=== PATIENT | female | born 1940 | race Caucasian/White ===

== ENCOUNTER 2017-10-30 23:24 | Inpatient (IN) | payer OTHER ==
[~2017-10-30] VITALS: Ht 165.1 cm; Wt 71.7 kg
[~2017-10-30 23:24] MED LIST: ALBU90AE IH; AMLO2.5T45 PO; CLOP75TA16 PO; FAMO20TA8 PO; METO25TA6 PO; NITR0.4T49 *; NITR0.4T49 SL; PANT40TA4 PO; PREG75CA PO
[2017-10-31] MEDS ORDERED: SODIUM CHLORIDE 0.9% 1,000 ML IV ONE (00:15)
[2017-10-31 00:45] LABS: HEMATOCRIT. 36.5 % (36.0-48.0); MEAN CORPUSCULAR HEMOGLOBIN 29.6 pg (28.0-32.0); MEAN CORPUSCULAR VOLUME 90.1 fL (81.0-99.0); MEAN PLATELET VOLUME 8.6 fl (7.4-10.4); PLATELET 296 x1000/uL (130-400); RED BLOOD CELL COUNT 4.05 mill/uL (4.2-5.4); RED CELL DISTRIBUTION WIDTH 15.9 % (11.6-14.6)
[2017-10-31 00:50] LABS: CHLORIDE 109 mEq/L (98-107)
[2017-10-31 00:52] LABS: INR 1.1
[2017-10-31 01:01] LABS: PLATELET ESTIMATE NORMAL
[2017-10-31] MEDS ORDERED: POTASSIUM CHLORIDE 20MEQ TABLET SR PO NR ×2 (01:30→19:15)
[2017-10-31 01:45] LABS: CLARITY URINE CLEAR (CLEAR); COLOR URINE YELLOW (YELLOW); SPECIFIC GRAVITY URINE 1.028 (1.005-1.030)
[2017-10-31 01:46] LABS: KETONES URINE NEGATIVE (NEGATIVE); LEUKOCYTE ESTERASE URINE NEGATIVE (NEGATIVE); NITRITE URINE NEGATIVE (NEGATIVE); OCCULT BLOOD URINE NEGATIVE (NEGATIVE); PROTEIN URINE NEGATIVE (NEGATIVE)
[2017-10-31] MEDS ORDERED: METRONIDAZOLE 500 MG PREMIX 100 ML IV NR (02:45)
[2017-10-31] MEDS ORDERED: PIPERACILLIN/TAZOBACTAM 3.375GM/50ML PREMIX IV ONE (02:45)
[2017-10-31] MEDS ORDERED: PIPERACILLIN/TAZ 3.375G PREMIX 50 ML IV NR (03:30)
[2017-10-31 08:30] VITALS: BP 128/85
[2017-10-31] MEDS ORDERED: ONDANSETRON HCL 4MG/2ML VIAL IV PRN (09:15)
[2017-10-31] MEDS ORDERED: ENOXAPARIN 40MG/0.4ML SYR SUBCUT SCH (11:00)
[2017-10-31 11:07] VITALS: BP 146/84
[2017-10-31] MEDS: MORPHINE SULFATE 4 MG/ML CPJ (NOT FOR IM USE) IV PRN ×2 (13:01→19:50)
[2017-10-31 13:23] LABS: HEMATOCRIT 34.4 % (36.0-48.0); HEMOGLOBIN 11.2 g/dL (12.0-16.0)
[2017-10-31] MEDS ORDERED: IPRATROPIUM/ALBUTEROL 0.5-3(2.5)MG/3ML NEB HHN PRN (14:00)
[2017-10-31] MEDS ORDERED: CLONIDINE 0.1MG TABLET PO PRN (14:30)
[2017-10-31] MEDS ORDERED: DIPHENHYDRAMINE 50MG/ML VIAL IV PRN (14:30)
[2017-10-31] MEDS: AMLODIPINE 2.5MG TABLET PO SCH (15:16)
[2017-10-31] MEDS ORDERED: AMLODIPINE 2.5MG TABLET PO SCH (16:00)
[2017-10-31 16:13] VITALS: BP 119/56
[2017-10-31] MEDS: SODIUM CHLORIDE 0.45% 1,000 ML IV SCH (16:25)
[2017-10-31] MEDS: PANTOPRAZOLE SODIUM 40 MG/VIAL IV SCH (16:25)
[2017-10-31] MEDS: PIPERACILLIN/TAZ 3.375G PREMIX 50 ML IV SCH ×2 (16:25→23:36)
[2017-10-31] MEDS: METOPROLOL TARTRATE 25MG TABLET PO SCH (16:26)
[2017-10-31] MEDS ORDERED: ACETAMINOPHEN 325MG TABLET PO PRN (16:30)
[2017-10-31] MEDS ORDERED: ACETAMINOPHEN 650MG/20.3ML UDC PO PRN (16:30)
[2017-10-31] MEDS ORDERED: ACETAMINOPHEN 650MG SUPP PR PRN (16:30)
[2017-10-31 17:11] LABS: CHLORIDE 110 mEq/L (98-107); HEMATOCRIT 33.3 % (36.0-48.0); HEMOGLOBIN 10.8 g/dL (12.0-16.0); MEAN CORPUSCULAR HEMOGLOBIN 29.1 pg (28.0-32.0); MEAN CORPUSCULAR VOLUME 89.8 fL (81.0-99.0); PLATELET 290 x1000/uL (130-400); RED BLOOD CELL COUNT 3.71 mill/uL (4.2-5.4); RED CELL DISTRIBUTION WIDTH 16.1 % (11.6-14.6)
[2017-10-31 20:00] VITALS: BP 112/36
[2017-10-31] MEDS: PREGABALIN 75MG CAPSULE PO SCH (23:38)
[2017-11-01] VITALS (7 sets, daily range): BP systolic 101–136; BP diastolic 49–60
[2017-11-01] MEDS: PIPERACILLIN/TAZ 3.375G PREMIX 50 ML IV SCH (05:22)
[2017-11-01 06:56] LABS: HEMATOCRIT 31.1 % (36.0-48.0); MEAN CORPUSCULAR HEMOGLOBIN 29.1 pg (28.0-32.0); MEAN CORPUSCULAR VOLUME 90.4 fL (81.0-99.0); PLATELET 247 x1000/uL (130-400); RED BLOOD CELL COUNT 3.44 mill/uL (4.2-5.4)
[2017-11-01] MEDS: AMLODIPINE 2.5MG TABLET PO SCH (08:27)
[2017-11-01] MEDS: PANTOPRAZOLE SODIUM 40 MG/VIAL IV SCH ×2 (08:27→16:40)
[2017-11-01] MEDS: METOPROLOL TARTRATE 25MG TABLET PO SCH ×2 (08:28→16:40)
[2017-11-01] MEDS: SODIUM CHLORIDE 0.45% 1,000 ML IV SCH (10:48)
[2017-11-01] MEDS ORDERED: METRONIDAZOLE 500 MG PREMIX 100 ML IV SCH (13:00)
[2017-11-01] MEDS ORDERED: METRONIDAZOLE 500MG TABLET PO SCH (14:00)
[2017-11-01] MEDS: METRONIDAZOLE 500 MG PREMIX 100 ML IV SCH ×2 (16:39→22:02)
[2017-11-01] MEDS: VANCOMYCIN HCL 1000 MG/20 ML ORAL PO SCH (17:39)
[2017-11-01] MEDS: PREGABALIN 75MG CAPSULE PO SCH (21:59)
[2017-11-02] VITALS: BP 118/52
[2017-11-02] MEDS: VANCOMYCIN HCL 1000 MG/20 ML ORAL PO SCH ×3 (01:00→13:14)
[2017-11-02] MEDS: METRONIDAZOLE 500 MG PREMIX 100 ML IV SCH (06:23)
[2017-11-02 07:32] LABS: HEMATOCRIT 31.9 % (36.0-48.0); HEMOGLOBIN 10.4 g/dL (12.0-16.0); MEAN CORPUSCULAR HEMOGLOBIN 29.8 pg (28.0-32.0); PLATELET 173 x1000/uL (130-400); RED BLOOD CELL COUNT 3.51 mill/uL (4.2-5.4); RED CELL DISTRIBUTION WIDTH 16.7 % (11.6-14.6)
[2017-11-02 08:00] VITALS: BP 137/71
[2017-11-02] MEDS: AMLODIPINE 2.5MG TABLET PO SCH (09:06)
[2017-11-02] MEDS: METOPROLOL TARTRATE 25MG TABLET PO SCH (09:07)
[2017-11-02] MEDS: PANTOPRAZOLE SODIUM 40 MG/VIAL IV SCH (09:07)
[2017-11-02 14:21] VITALS: BP 121/57
[2017-11-02 16:31] LABS: CHLORIDE 108 mEq/L (98-107)
== END 2017-11-02 15:16 | disposition home or self-care (01) | DRG 377 ==
LOC: ER 23:40 → 8WST 10-31 02:45 → EDBEDREQ 10-31 02:47 → ENRESERV 10-31 07:04
PROVIDERS: ADMIT Internal Medicine; ATTEND Internal Medicine
DX: K57.31 Diverticulosis of large intestine without perforation or abscess with bleeding (principal); I50.43 Acute on chronic combined systolic (congestive) and diastolic (congestive) heart failure; Z99.81 Dependence on supplemental oxygen; M41.9 Scoliosis, unspecified; B96.89 Other specified bacterial agents as the cause of diseases classified elsewhere; K64.9 Unspecified hemorrhoids; I11.0 Hypertensive heart disease with heart failure; E86.0 Dehydration; K44.9 Diaphragmatic hernia without obstruction or gangrene; J44.9 Chronic obstructive pulmonary disease, unspecified; E66.9 Obesity, unspecified; E87.6 Hypokalemia; K52.9 Noninfective gastroenteritis and colitis, unspecified; M47.9 Spondylosis, unspecified; Z85.038 Personal history of other malignant neoplasm of large intestine; Z86.73 Personal history of transient ischemic attack (TIA), and cerebral infarction without residual deficits; Z87.891 Personal history of nicotine dependence; Z90.49 Acquired absence of other specified parts of digestive tract; Z95.5 Presence of coronary angioplasty implant and graft; Z88.5 Allergy status to narcotic agent; Z88.6 Allergy status to analgesic agent; Z88.2 Allergy status to sulfonamides; Z88.8 Allergy status to other drugs, medicaments and biological substances; Z68.26 Body mass index [BMI] 26.0-26.9, adult
CPT/HCPCS: 36415; 70450; 71045; 74176; 80048; 80053; 81003; 82270; 82378; 83036; 83605; 83690; 84484; 85014; 85018; 85025; 85027; 85610; 87040; 87493; 93005; 93306; 96365; 96368; 99285; C9113; J1650; J2270; J2543; J3370; J3490; J7030; J7050; J7620